=== PATIENT | male | born 1950 | race Caucasian/White ===

== ENCOUNTER 2020-10-20 13:20 | Emergency (ER) | payer OTHER, MEDICARE ==
[~2020-10-20] VITALS: Ht 180.3 cm; Wt 107.0 kg
[~2020-10-20 13:20] MED LIST: COZAAR50 MG PO; CYCLOBENZAPRINE10 MG PO; HYDROCHLOROTHIA25 MG; HYDROCODON-ACE1 EA10 PO; LIPITOR20 MG PO; LISINOPRIL-HCT1 EAC2 PO; PERCOCET 5-3251 EACH PO
--- NOTE | 2020-10-20 17:11 | NUR ---
Both nares swabbed at 1658 for Covid-19 without complication. Sample taken to [facility].
== END 2020-10-20 18:18 | disposition short-term general hospital (02) ==
LOC: ED 13:20
DX: M86.9 Osteomyelitis, unspecified (principal); L03.116 Cellulitis of left lower limb; E87.1 Hypo-osmolality and hyponatremia; Z20.822 Contact with and (suspected) exposure to COVID-19; Z88.8 Allergy status to other drugs, medicaments and biological substances; Z79.899 Other long term (current) drug therapy
CPT/HCPCS: 73630; 80053; 83605; 85025; 85651; 86140; 99284-25; C9803; U0003

== ENCOUNTER 2022-12-29 07:45 | Day surgery (SDC) | payer OTHER ==
[2022-12-27 14:23] VITALS: BP 136/77
[~2022-12-29] VITALS: Ht 180.3 cm; Wt 100.0 kg
--- NOTE | ~2022-12-29 | OR ---
[facility] [address] [place], [place] [address] Draft DATE OF OPERATION: 12/29/2022 SURGEON: Myles Kathleen DPM PREOPERATIVE DIAGNOSIS: Ulcer and osteomyelitis, left foot. POSTOPERATIVE DIAGNOSIS: Ulcer and osteomyelitis, left foot. PATTERN MOLDER SURGEON: Brittney Gallardo DPM ANESTHESIA: IV general with local block, left foot. STORAGE WORKER: Juan Waters SPECIMEN TO PATHOLOGY: Soft tissue and bone of left 5th digit and bone of distal left 5th metatarsal. PROCEDURES: 1. Amputation, left 5th toe. 2. Debridement of soft tissue and bone to the left 5th metatarsal area. DESCRIPTION OF PROCEDURE: The patient was brought to the operating room and placed on the table in the supine position. Anesthesia Department administered IV sedation, after which a local block was given to the left foot using a total of 10 mL, 1:1 mixture of 2% lidocaine plain and 0.5% ropivacaine plain, this was reinforced intraoperatively with an additional 7 mL of 1:1 mixture of 2% lidocaine plain and 0.5% ropivacaine plain. The left leg and foot was then prepped and draped in the usual sterile manner and an Esmarch was used for hemostasis. Attention was initially directed to the ulcer site, lateral left 5th digit and lateral left 5th metatarsal, the majority of the bone in the toe was already gone as a result of the infection. The 5th metatarsal head also appeared to be gone, and at this time the 5th digit was deemed unsalvageable and a racquet style incision planned for the base of the 5th digit extending back to the ulcer area at the dorsal/lateral aspect of the toe, then extending from the ulcer area dorsally and proximally over the 5th metatarsal. The incision was full thickness to bone at both sites removing the left PATIENT NAME: ERYN MARK OPERATIVE REPORT DATE OF : 46 REPORT #: [id number] PHYSICIAN: MYLES KATHLEEN DPM PCP: JAMES GRIFFIN MD REPORT IS CONFIDENTIAL AND NOT TO BE RELEASED WITHOUT AUTHORIZATION [facility] [address] [place], [place] [address] Draft 5th digit in total and reflecting soft tissues to expose the distal 5th metatarsal, then probing the bone to this area noting soft bone with an eroded 5th metatarsal head. An osteotomy was made at about 2 cm proximal to the distal aspect of the bone, and since the metatarsal head was already absent due to infection, the osteotomy ended up being about the mid shaft of the 5th metatarsal, there appeared to be solid and bleeding bone at this level. The soft tissue surrounding the 5th metatarsal appeared to be healthy at the level of the osteotomy, however, there was some necrotic tissue within the area of the 5th metatarsal head and base of the 5th digit. There was also much softer or mushy feeling soft tissues at the plantar aspect of the foot extending under the 4th metatarsal at the mid metatarsal level and this area debrided with the use of the hand instrumentation. Nonviable tissues such as remaining tendon in the area of the amputation was resected. The surgical site irrigated with copious amounts of normal saline and a search for any remaining necrotic tissue was made, which was then debrided. The surgical site then irrigated again, and then started with 4-0 nylon. Calcium sulfate antibiotic beads containing vancomycin then used to the deep plantar space as well as throughout the surgical site. Closure then completed with 4-0 nylon and dressings then applied consisting of Adaptic, Betadine-soaked gauze, dry gauze, Kerlix roll, and Coban for mild compression. INTRAOPERATIVE COMPLICATIONS: None. ESTIMATED BLOOD LOSS: Less than 5 mL. CONDITION AND DISPOSITION: The patient tolerated the procedure and the anesthesia well and left the operating room with vascular status intact to the left foot as evidenced by hyperemia with removal of the Esmarch. Myles Kathleen DPM DFB/MODL /[id number] PATIENT NAME: ERYN MARK OPERATIVE REPORT DATE OF : 46 REPORT #: [id number] PHYSICIAN: MYLES KATHLEEN DPM PCP: JAMES GRIFFIN MD REPORT IS CONFIDENTIAL AND NOT TO BE RELEASED WITHOUT AUTHORIZATION [facility] [address] [place] [id number] Draft Copies: ~ PATIENT NAME: ERYN MARK OPERATIVE REPORT DATE OF : 46 REPORT #: [id number] PHYSICIAN: MYLES KATHLEEN DPM PCP: JAMES GRIFFIN MD REPORT IS CONFIDENTIAL AND NOT TO BE RELEASED WITHOUT AUTHORIZATION
[~2022-12-29 07:45] MED LIST changes: +POTASSIUM CHLO20 ME1 PO
[2022-12-29 08:37] VITALS: BP 151/78
[2022-12-29] MEDS ORDERED: DOXYCYCLINE HY100 MG PO (08:56)
[2022-12-29] MEDS ORDERED: CIPRO500 MG PO (08:56)
--- NOTE | 2022-12-29 11:13 | NUR ---
12/29/22 1113 Natasha Pierre 1058-PATIENT ARRIVED TO PACU ON RA RR EVEN. PATIENT AWAKE HOB ELEVATED DENIES PAIN OR NAUSEA. DRESSING CDI PILLOWS TO ELEVATED. IVF INFUSING. SR WITH BBB. PATIENT ABLE TO WIGGLE TOES. 1107-XRAY AT BEDSIDE RA 97% RR EVEN 1113-PATIENT AWAKE DENIES PAIN OR NAUSEA. PATIENT PUT DENTURES IN MOUTH. RA 97% RR EVEN
[2022-12-29 11:31] VITALS: BP 155/83
--- NOTE | 2022-12-29 14:27 | EKG ---
[facility] [address] [facility] [place] [address] Signed Sinus rhythm with 1st degree AV block Right bundle branch block Left anterior fascicular block Bifascicular block Abnormal ECG When compared with ECG of 24-JUL-2020 20:43, CT interval has increased Confirmed by ERIC HIGUERA MD ([id number]) on 12/29/2022 2:27:35 PM Electronically Signed By: ERIC HIGUERA 12/29/22 1427 PATIENT NAME: MATTHEW MARKARD [place] Electrocardiogram DATE OF : 46 PHYSICIAN: ERIC HIGUERA REPORT #: [id number] REPORT IS CONFIDENTIAL AND NOT TO BE RELEASED WITHOUT AUTHORIZATION
== END 2022-12-29 11:50 | disposition home or self-care (01) ==
LOC: OPS 07:45 → DS 07:45 → OPS 09:30 → DS 10:30 → OPS 10:30 → DS 01-05 07:30
PROVIDERS: ATTEND Podiatrist Foot Surgery
PROC: 0Y6Y0Z0 Detachment at Left 5th Toe, Complete, Open Approach (ICD-10-PCS; principal; 2022-12-29 09:30)
DX: M86.172 Other acute osteomyelitis, left ankle and foot (principal); L03.116 Cellulitis of left lower limb; L97.524 Non-pressure chronic ulcer of other part of left foot with necrosis of bone
CPT/HCPCS: 73630; 87205; 93005; 93010; J0690; J1100; J2704; J2795; J3370; J3490; J7121